=== PATIENT | female | born 2005 | race Caucasian/White ===

== ENCOUNTER 2023-06-14 12:22 | Emergency (ER) | payer BC ==
[~2023-06-14] VITALS: Ht 157.4 cm; Wt 59.0 kg
[2023-06-14] MEDS ORDERED: PREDNISONE20 M1 PO (17:33)
== END 2023-06-14 18:01 | disposition home or self-care (01) ==
LOC: ED 12:22
DX: L50.9 Urticaria, unspecified (principal); T49.2X5A Adverse effect of local astringents and local detergents, initial encounter; Y92.89 Other specified places as the place of occurrence of the external cause